=== PATIENT | male | born 1945 | race Caucasian/White ===

== ENCOUNTER 2020-11-07 15:39 | Outpatient (REF) | payer MEDICARE, SELFPAY ==
--- NOTE | 2020-11-07 | XR_ITS ---
EXAMINATION: RIGHT WRIST X-RAY CLINICAL INFORMATION: Pain COMPARISON: Previous forearm x-ray June 2018 TECHNIQUE: 4 views of the right wrist FINDINGS: Bone alignment is normal. No acute fracture or dislocation is seen. There is an old healed fracture of the right distal radius that appears unchanged. There are mild degenerative changes at the radiocarpal joint. Joint spaces are otherwise normal. Soft tissues are normal. XR/XR hand wrist RT IMPRESSION: Old healed fracture of the right distal radius and mild degenerative changes at the radiocarpal joint.
== END 2020-11-07 15:40 | disposition home or self-care (01) ==
LOC: HO.XRAY 15:39
PROVIDERS: PCP Internal Medicine; Visit Provider Nurse Practitioner Family
DX: M25.531 Pain in right wrist (principal)
CPT/HCPCS: 73110; 73130

== ENCOUNTER 2020-12-04 09:46 | Day surgery (SDC) | payer MEDICARE, MEDICAID, SELFPAY ==
[2020-11-28 20:56] VITALS: BMI 24.3
--- NOTE | 2020-12-03 08:39 | HO.ANESPROP2 ---
Documented by User: Tanja Valentin 12/03/20 08:39 HPI - Anesthesia Eval Consult details Narrative: 75yo M for Colonoscopy [facility] Past Medical History Medical History HTN (hypertension) Hypercholesteremia Surgical History Surgical History History of colonoscopy Social History Social History Smoking Status: Never smoker Use of substances other than those prescribed or required for medical reasons: No Advance Directives: No Advance Directives Information Provided: No Advance Directives on File: No Meds Allergies Allergy/AdvReac Type Severity Reaction Status Date / Time No Known Allergies Allergy Verified 11/28/20 20:56 [No Known Allergies*] Home Medications Medication Instructions Recorded Confirmed Type atorvastatin 1 tab PO DAILY 11/28/20 11/28/20 History hydrochlorothiazide 1 cap PO QAM 11/28/20 11/28/20 History meloxicam 1 tab PO DAILY 11/28/20 11/28/20 History terazosin 1 cap PO BEDTIME 11/28/20 11/28/20 History Exam Exam Date and Time: December 03, 2020 0839 Height,Weight and Vital Signs: Height 5 ft 8 in Weight 72.575 kg Assessment and Plan Assessment Anesthesia Assessment: Chart Reviewed Documented by User: Sourav Lorenzo 12/04/20 10:15 [facility] Past Medical History Medical History HTN (hypertension) Hypercholesteremia Surgical History Surgical History History of colonoscopy Social History Social History Smoking Status: Never smoker Use of substances other than those prescribed or required for medical reasons: No Advance Directives: No Advance Directives Information Provided: No Advance Directives on File: No Meds Allergies Allergy/AdvReac Type Severity Reaction Status Date / Time No Known Allergies Allergy Verified 11/28/20 20:56 [No Known Allergies*] Home Medications Medication Instructions Recorded Confirmed Type atorvastatin 1 tab PO DAILY 11/28/20 11/28/20 History hydrochlorothiazide 1 cap PO QAM 11/28/20 11/28/20 History meloxicam 1 tab PO DAILY 11/28/20 11/28/20 History terazosin 1 cap PO BEDTIME 11/28/20 11/28/20 History Exam Airway Mallampati Class: II TM Dist: >3cm Neck ROM: Full Loose/Missing/Broken Teeth: No Heart: rrr+[id number] Lungs: cta b/l Assessment and Plan Assessment Anesthesia Assessment: Anesthesia Plan Discussed, PAT Visit and Chart Reviewed Final Anesthetic Review NPO: Yes ASA Class: II Final Preanesthetic Review: No Changes in Pt Med Stat, Meds/Allgs Chart Reviewed, Consent Obtained/Reviewed and Anes Risks/Benef Reviewed Patient Risk: Low Procedure Risk: Low Assessment/Block/Sedation in SS: Assess/Block/Sedation-SS Anesthetic Plan Anesthetic Plan: MAC: Disposition: Standard PACU
[2020-12-04 10:00] VITALS: BP 128/67; PULSE 83; RESP 16; TEMP 36.2; O2SAT 99
[2020-12-04] MEDS: Lactated Ringers 1,000 ML 100 ML IVCONT (10:11)
--- NOTE | 2020-12-04 10:21 | MHC.SHP ---
Pre-Procedural Eval Section B Chief Complaint: colon polyps Relevant Family History (Specify if Yes): No Relevant Social History: None Present Medications: see Short Stay Collaborative assessment (HTN (hypertension) Hypercholesteremia) Medical History: Significant History (HTN (hypertension) Hypercholesteremia) History of Previous Operations: Relevant previous surgery/procedure and date(s) (colonoscopy) Allergies: Allergies Allergy/AdvReac Type Severity Reaction Status Date / Time No Known Allergies Allergy Verified 11/28/20 20:56 [No Known Allergies*] Review of Systems Sugical H&P ROS: Negative: Constitution, Cardiovascular, Respiratory, Neurological, Psychiatric, Hem-Onc, Allergic/Immunologic, Gastrointestinal, Genitourinary, Musculoskeletal, Integumentary, Endocrine and Eyes/Ears/Nose/Throat Exam Surgical H&P Exam: Normal: HEENT, Normal: Heart, Normal: Lungs, Normal: Extremities, Normal: Abdomen, Normal: Skin and Normal: Neurological Plan Diagnosis/Plan: Unchanged I have reviewed the history and physical and performed a pertinent physical examination on my patient. No changes have occurred unless specified.
--- NOTE | 2020-12-04 10:22 | PM.OP ---
Brief Operative Note Date of Service: 12/04/20 Pre-op diagnosis: hx of colon polyps Post-op diagnosis: same Procedure: Operative Information Procedure Description: Colonoscopy COLONOSCOPY Instrument: Olympus variable stiffness pediatric scope 190L Colonoscopy Monitoring: Vital signs and clinical assessment, continuous EKG monitoring, Pulse oximetry, Carbon Dioxide monitoring and blood pressure monitoring were done throughout the procedure. Colon withdrawal time was 8 minutes. Procedure: The patient was placed in the left lateral decubitis position and pre-procedure medications were administered. After a digital rectal examination of the ano-rectum, the video colonoscope was inserted into the rectum and advanced through the colon to the cecum/TI. The colonoscope was slowly withdrawn in a retrograde panoramic fashion and the colon mucosa was carefully examined including a retroflexed view of the rectum. Findings and interventions are described below. Procedure Difficulty:easy Findings: Terminal Ileum-normal Cecum:normal Ascending Colon: normal Transverse Colon -normal Descending Colon:normal Sigmoid Colon: moderate diverticulosis with mucosal hypertrophy and some narrowing of colon Rectum: Retroflexion with moderate sized internal hemorrhoids, grade II Anorectum - normal, internal hemorrhoids seen at anal verge Colon preparation: Ennis Bowel Preparation Scale Right colon; 3 Transverse colon: 3 Left colon; 3 (0 = Unprepared colon segment with mucosa not seen due to solid stool that cannot be cleared. 1 = Portion of mucosa of the colon segment seen, but other areas of the colon segment not well seen due to staining, residual stool and/or opaque liquid. 2 = Minor amount of residual staining, small fragments of stool and/or opaque liquid, but mucosa of colon segment seen well. 3 = Entire mucosa of colon segment seen well with no residual staining, small fragments of stool or opaque liquid) Impression and Post Procedure Diagnosis: diverticulosis internal hemorrhoids Plan: High fiber diet leaflet Avoid straining at stool, epsom salts and sitz bath prn, anusol supps or cream prn Repeat Colonoscopy 10 years or earlier if clinically indicated Above findings were reviewed with the patient and relevant handouts were provided if indicated. Surgeon: Alicia Harvey MD Anesthesia: MAC Estimated blood loss (mL): 0 Condition: stable Disposition: PACU
[2020-12-04 10:40] VITALS: BP 91/49; PULSE 70; RESP 16; TEMP 36.6; O2SAT 97
[2020-12-04 10:55] VITALS: BP 105/59; PULSE 76; RESP 16; TEMP 36.6; O2SAT 98
--- NOTE | 2020-12-04 11:23 | HO.POSTANES ---
Post Anesthesia Evaluation Post Anesthesia Evaluation Vital Signs: Vital Signs Temp Pulse Resp BP Pulse Ox 12/04/20 10:55 97.8 F 76 16 105/59 L 98 12/04/20 10:40 97.8 F 70 16 91/49 L 97 12/04/20 10:00 97.1 F 83 16 128/67 99 Anesthesia: Monitored Mental Status: Awake Pain Control: Satisfactory Nausea/Vomiting: None Hydration: Adequate Anesthesia-Related Issues: No Anes. Related Issues
--- NOTE | 2020-12-04 11:38 | PC.NURSE ---
Discharge instructions given with the assistance of [facility] Senior Internal Auditor
== END 2020-12-04 11:35 | disposition home or self-care (01) ==
PROVIDERS: PCP Internal Medicine; Visit Provider Internal Medicine Gastroenterology
PROC: 0DJD8ZZ Inspection of Lower Intestinal Tract, Via Natural or Artificial Opening Endoscopic (ICD-10-PCS; CPT 45378; principal; 2020-12-04 10:20)
DX: Z12.11 Encounter for screening for malignant neoplasm of colon (principal); Z86.010 Personal history of colon polyps; K57.30 Diverticulosis of large intestine without perforation or abscess without bleeding; K63.89 Other specified diseases of intestine; K64.1 Second degree hemorrhoids; I10 Essential (primary) hypertension; Z79.899 Other long term (current) drug therapy
CPT/HCPCS: G0105

== ENCOUNTER → 2020-12-18 11:15 | Outpatient (BNVA) | payer MEDICARE, MEDICAID, SELFPAY | PROVIDERS: PCP Internal Medicine; Visit Provider Physician Assistant | DX: K64.8 Other hemorrhoids (principal); K57.90 Diverticulosis of intestine, part unspecified, without perforation or abscess without bleeding | CPT/HCPCS: Q3014 ==

== ENCOUNTER 2020-12-19 13:00 | Outpatient (RCR) | payer MEDICARE, MEDICAID, SELFPAY | END 2020-12-31 15:26 | disposition other institution (70) | LOC: HO.OT 13:00 | PROVIDERS: PCP Internal Medicine; Visit Provider Nurse Practitioner Family | DX: M77.8 Other enthesopathies, not elsewhere classified (principal); M25.531 Pain in right wrist | CPT/HCPCS: 97033; 97035; 97110; 97140; 97166 ==

== ENCOUNTER 2024-07-27 12:53 | Outpatient (REF) | payer OTHER, MEDICAID, SELFPAY ==
--- NOTE | ~2024-07-27 | US_ITS ---
EXAMINATION: US SOFT TISSUE HEAD/NECK CLINICAL INFORMATION: Superficial round mass behind left ear x2 years. Remote history of smoking . COMPARISON: None available. TECHNIQUE: Linear transducer romo-scale and color Doppler examination with attention to the palpable region of concern behind the left ear. FINDINGS: Along the left retroauricular region is a avascular solid appearing focus measuring 0.9 x 0.4 x 1.1 cm with isoechoic echotexture to the subcutaneous fat potentially representing a lipoma though nonspecific. US/US soft tiss head and/or neck IMPRESSION: Along the left retroauricular region is a avascular solid appearing focus measuring 0.9 x 0.4 x 1.1 cm with isoechoic echotexture to the subcutaneous fat potentially representing a lipoma though nonspecific. Electronically signed by: Queenie Monsivais MD 08/06/2024 03:08 PM EDT
== END 2024-07-27 12:54 | disposition home or self-care (01) ==
LOC: HO.US 12:53
PROVIDERS: Visit Provider Nurse Practitioner Primary Care
DX: R22.9 Localized swelling, mass and lump, unspecified (principal)
CPT/HCPCS: 76536

== ENCOUNTER 2025-01-26 08:10 | Outpatient (REF) | payer OTHER, SELFPAY ==
--- OUTSIDE RECORDS SUMMARY | 2025-01-26 08:29 | XMS_ITS | Encounter Summary ---
Author Organization [employer] Address [address] [place] [address] Care Team Providers Care User Experience Analyst Name Role Phone Emeli Gaitan TAWANNA Primary Care Provider [phone] Encounter Details Date Type Department Care Team (Latest Contact Info) Description 01/25/2025 Travel Social History Tobacco Use Types Packs/Day Years Used Date Smoking Tobacco: Never Smokeless Tobacco: Never Depression Answer Date Recorded Patient Health Questionnaire-9 Score 2 07/19/2024 Patient Health Questionnaire-9 Score 2 07/19/2024 Last PHQ-9: Questionnaire Data Not on file 0 07/19/2024 Housing Stability Answer Date Recorded What is your housing situation today? I have carolyn de la rosa 07/19/[address] you li ve. Do you have problems with any of the following? None of the above 07/19/2024 Food Insecurity Answer Date Recorded Within the past 12 months, y ou worried that your food would run out before you got money to buy more: Never True 07/19/2024 Within the past 12 months,th e food you bought just didn't last and you didn't have enough money to get more: Never True Transportation Answer Date Recorded In the past 12 months, has l ack of transportation kept you from medical appts, meetings, work or from getting things needed for daily living? No 07/19/2024 Utilities Answer Date Recorded In the past 12 months, has t he electric, gas, oil or water company threatened to shut off services in your home? No 07/19/2024 Depression Answer Date Recorded Patient Health Questionnaire-2 Score 0 07/19/2024 Internet Access Answer Date Recorded Internet Access Q1 Yes 07/25/2024 Internet Access Q2 Not on file 07/25/2024 Sex and Gender Information Value Date Recorded Sex Assigned at Male 09/22/2022 10:16 AM EDT Legal Sex Male 10:16 AM EDT Gender Identity Male 09/22/2022 10:16 AM EDT Sexual Orientation Straight 09/22/2022 10 :16 AM EDT documented as of this encounter Plan of Treatment Upcoming Encounters Date Type Department Care Team (Late st Contact Info) Description 01/27/2025 3:00 PM EST Nurse Only [facility] MED[facility]INE [address] [place] [address] 03/16/2025 11:00 AM EDT Office Visit [facility] ADULT DENTAL [address] [place] [address] Kenia Pierce [address] [place] [address] documented as of this encounter Visit Diagnoses Not on filedocumented in this encounter Additional Health Concerns Assessment Noted Time PHQ-9 Depression Total Score: 2 07/19/20 24 1:41 PM EDT documented as of this encounter Care Teams User Experience Analyst Relationship Specialty Start Date End Date Emeli Gaitan ANP [address] [place] [address] PCP - General Family Medicine 02/18/23 documented as of this encounter
--- OUTSIDE RECORDS SUMMARY | 2025-01-26 08:29 | XMS_ITS | Encounter Summary ---
Author Organization [employer] Address [address] [place] [address] Care Team Providers Care Transmission Supervisor Name Role Phone Emeli Gaitan Primary Care Provider [phone] Reason for Visit * Reason Comments Pre-visit Planning SDOH Screening negat alex and Tobacco screening negative Encounter Details Date Type Department Care Team ([facility] st Contact Info) Description 01/17/2025 Patient Outreach [facility] MEDICINE [address] [place], [place] [phone] Emeli Gaitan ANP [address] [place] [address] Pre-visit Planning (SDOH Screening negative and Tobacco screening negative) Social History Tobacco Use Types Packs/Day Years [...] AM EDT documented as of this encounter Progress Notes * Dana Astorga - 01/17/2025 11:19 AM EST NEO Burt placed successful outbound call to patient for pre-visit planning. Patient name and confirmed. Patient confirms appt date and time, and has transportation arrangements. Biggest concern for appointment at this time is no concerns. Patient advised to bring to appointment a photo id and insurance card. Appropriate screenings completed in anticipation of appointment. documented in this encounter Plan of Treatment Upcoming Encounters Date Type Department Care Team (Late st Contact Info) Description 01/27/2025 3:00 PM EST Nurse Only [facility] [address] [place] [address] 03/16/2025 11:00 AM EDT Office Visit [facility] ADULT DENTAL [address] [place] [address] Kenia Pierce [address] [place] [address] documented as of this encounter Visit Diagnoses Not on filedocumented in this encounter Additional Health Concerns Assessment Noted Time PHQ-9 Depression Total Score: 2 07/19/20 24 1:41 PM EDT documented as of this encounter Care Teams Transmission Supervisor Relationship Specialty Start Date End Date Emeli Gaitan ANP [address] [place] [address] PCP - General Family Medicine 02/18/23 documented as of this encounter
--- OUTSIDE RECORDS SUMMARY | 2025-01-26 08:29 | XMS_ITS | Clinical Summary ---
Author Organization [employer] Address [address] [place] [address] Care Team Providers Care Power Engineer Name Role Phone Emeli Gaitan TAWANNA Primary Care Provider [phone] Allergies No known active allergies Medications hydroCHLOROthia zide (Microzide) 12.5 MG capsule TAKE 1 CAPSULE BY MOUTH ONCE DAILY 90 capsule 3 02/29/20 24 Active zolpidem (Ambien) 5 MG tabletIndicatio ns:Insomnia, unspecified type TAKE 1 TABLET BY MOUTH AT BEDTIME 30 tablet 1 12/09/19 25 Active atorvastatin (Lipitor) 10 MG tablet Take 1 tablet (10 mg) by mouth Once per day. 90 tablet 3 12/30/19 25 Active terazosin (Hytrin) 10 MG capsule TAKE 1 CAPSULE BY MOUTH EVERY DAY AT BEDTIME 90 capsule 3 01/17/20 25 Active atorvastatin (Lipitor) 10 MG tablet TAKE 1 TABLET BY MOUTH EVERY DAY 90 tablet 3 02/29/20 24 025 Discontinued(Re order (will not trigger notification to Pharmacy)) terazosin (Hytrin) 10 MG capsule TAKE 1 CAPSULE BY MOUTH AT BEDTIME 90 capsule 3 02/29/20 24 025 Discontinued Active Problems Problem Noted Date Diagnosed Date Periodontal disease 07/13/2023 Dental calculus 07/13/2023 Generalized gingival recession 07/13/2023 Healthcare maintenance 02/18/2023 Overview (02/18/2023): colonoscopy: last in 2019 was normal, repeat in 10 years AAA screening: former smoker, last US in 2013 showed no AAA Vaccinations: UTD, TDap 01/2022 Pain in elbow 09/13/2018 Insomnia 10/21/2012 Hypercholesterolemia 08/18/2012 Hypertension 08/18/2012 Benign prostatic hyperplasia with urinary obstru ction 05/25/2012 Encounters Date Type Department Care Team Description 01/25/2025 3:00 PM EST Office Visit [facility] MEDICINE [address] [place] [phone] Emeli Gaitan ANP Hypercholesterolemia (Primary Dx); Primary hypertension; Insomnia, unspecified type; Encounter for immunization 01/25/2025 Travel 01/17/2025 Patient Outreach [facility] [address] [place] [address] Emeli Gaitan ANP Pre-visit Planning (SDOH Screening negative and Tobacco screening negative) 01/16/2025 Refill [facility] MED[facility]INE [address] [place] [address] Emeli Gaitan ANP 12/30/2024 Refill [facility] [address] [place] [id number] Emeli Gaitan ANP 12/09/2024 Refill [facility] [address] [place] [address] Eemli Gaitan ANP Insomnia, unspecified type 2024 Telephone [facility] MED[facility]INE [address] [place] [address] Gustabo Loaiza [place] January recall from Last 3 Months Immunizations Name Administration Dates Next Due Hep A, Adult 03/11/2013,10/20/2011 Hep B, adult 03/11/2013,10/20/2011 Influenza High-dose Quadriva lent Preservative Free 08/24/2022,07/22/2021,09/14/2020 Influenza injectable quadriv alent IIV4 with preservative 08/11/2016 Influenza, High Dose Seasona l, Preservative Free 01/25/2025,08/24/2018,08/10/2017 Influenza, IIV3, injectable 08/05/2011 Influenza, Split (incl. nicolasa fied surface antigen) 08/15/2013,08/18/2012 Influenza, seasonal, injecta ble, preservative free 08/13/2015 Pfizer Covid-19 Vaccine 12+ 01/25/2025 Pneumococcal Conjugate PCV 13 08/13/2015 Pneumococcal Polysaccharide PPSV23 05/20/2013 Tdap 02/17/2022,10/20/2011 Zoster, Recombinant 08/24/2020,06/22/2020 Zoster, live 03/11/2013 Social History Tobacco Use Types Packs/Day Years Used Date Smoking Tobacco: Never Smokeless Tobacco: Never Tobacco Cessation:Counseling Given: Not Answered Depression Answer Date Recorded Patient Health Questionnaire-9 [...] Orientation Straight 09/22/2022 10 :16 AM EDT Last Filed Vital Signs Vital Sign Reading Time Taken Comments Blood Pressure 129/67 01/25/2025 2:47 PM EST Pulse 74 01/25/2025 2:47 PM EST Temperature 36.2 ??C (97.2 ??F) 01/25/2025 2:47 PM ES T Respiratory Rate 15 01/25/2025 2:47 PM EST Oxygen Saturation 98% 01/25/2025 2:47 PM EST Inhaled Oxygen Concentration - - Weight 68.8 kg (151 lb 9.6 oz) 01/25/2025 2:47 P M EST Height 170.2 cm (5' 7 ) 07/19/2024 1:33 PM EDT Body Mass Index 23.74 07/19/2024 1:33 PM EDT Plan of Treatment Upcoming Encounters Date Type Department Care Team (Late st Contact Info) Description 01/27/2025 3:00 PM EST Nurse Only [facility] [address] [place] [address] 03/16/2025 11:00 AM EDT Office Visit [facility] ADULT DENTAL [address] [place] [address] Stan Kenia [address] [place] [address] Health Maintenance Due Date Last Done Comments Hepatitis C Screening 1963 Hepatitis B Vaccines (3 of 3 - 19+ 3-dose series) 05/06/2013 03/11/2013, 10/20/2011 RSV Patients and Patients Aged 60 years or older (1 - 1-dose 75+ series) 2022 Dental Oral Exam 01/14/2024 07/13/2023, 07/2021, 02/12/2017, Additional history exists Dental X-Ray: Full Mouth 03/02/2024 021, 08/24/2013, 01/16/2010 Dental X-Ray: Bitewings 07/14/2024 07/13/20 23, 03/01/2021, 02/12/2017, Additional history exists Dental Prophylaxis 03/14/2025 09/12/2024, 0 07/13/2023, 03/01/2021, Additional history exists Depression Screening 07/19/2025 07/19/2024, 07/19/20 24 SDOH Screening 01/17/2026 01/17/2025 Alcohol/Substance Use Screening 01/25/2026 01/25/2025 Tobacco Screening 01/25/2026 01/25/2025 Lipid Panel 02/19/2028 02/18/2023, 01/22, 06/07/2020 DTaP/Tdap/Td Vaccines (3 - Td or Tdap) 02/18/2032 02/17/2022, 10/20/2011 Hepatitis A Vaccines Aged Out 03/11/2013, 10/20/20 11 No longer eligible based on patient's age to complete this topic Pneumococcal Vaccine: 50+ Years Completed 08/13/2015, 05/20/2013 Zoster Vaccines Completed 08/24/2020, 05/25, 03/11/2013 Colonoscopy Discontinued 12/18/2020 Colorectal Cancer Screening Discontinued COVID-19 Vaccine Completed 01/25/2025, , 09/25/2021 Influenza Vaccine Completed 01/25/2025, , 07/22/2021, Additional history exists CT Colonography Discontinued FIT DNA/Cologuard Discontinued FIT Discontinued FOBT Discontinued HIB Vaccines Aged Out No longer eligi ble based on patient's age to complete this topic HPV Vaccines Aged Out No longer eligi ble based on patient's age to complete this topic IPV Vaccines Aged Out No longer eligi ble based on patient's age to complete this topic Meningococcal Vaccine Aged Out No maritza antonio eligible based on patient's age to complete this topic RSV under 20 months Aged Out No longe r eligible based on patient's age to complete this topic Rotavirus Vaccines Aged Out No longer eligible based on patient's age to complete this topic Sigmoidoscopy Discontinued Procedures Procedure Name Priority Date/Time Associated Diagnosis Comments Full PROPHYLAXIS - ADULT Routine 09/12/2024 11:00 AM EDT Dental calculus Generalized gingival recession BITEWINGS - 4 RADIOGRAPHIC IMAGES Routine 07/13/2023 1:00 PM EDT Periodontal disease Dental calculus Generalized gingival recession PERIODIC ORAL EVALUATION - ESTABLISHED PATIENT Routine 07/13/2023 1:00 PM EDT LIPID PANEL, STANDARD Routine 02/18/2023 2:48 PM EDT Hypercholesterolemi a INTRAORAL - COMPLETE SERIES OF RADIOGRAPHIC IMAGES Routine 03/01/2021 12:00 AM EDT HM COLONOSCOPY Routine 12/18/2020 2:34 PM EST from Last 3 Months or Most Recently Relevant to Health Maintenance Results * Lipid Panel, Standard (02/18/2023 2:48 PM EDT) [facility] Signature Cholesterol, Total 150 <200 mg/dL [facility] HDL Cholesterol 49 > OR = 40 mg/dL [facility] Triglycerides 124 <150 mg/dL [facility] LDL Cholesterol 78 mg/dL (calc) [facility] Comment: Reference range: <100 Desirable range <100 mg/dL for primary prevention; ?? <70 mg/dL for patients with CHD or diabetic patients with > or = 2 CHD risk factors. LDL-C is now calculated using the Wesley calculation, which is a validated novel method providing better accuracy than the Friedewald equation in the estimation of LDL-C. Varun SS et al. CHRIS. 2013;310(19): 9351-5545 (http://education.[place]/faq/GKK310) Chol/HDLC Ratio 3.1 <5.0 (calc) [facility] Non-HDL Cholesterol 101 <130 mg/dL (calc) [facility] Comment: For patients with diabetes plus 1 major ASCVD risk factor, treating to a non-HDL-C goal of <100 mg/dL (LDL-C of <70 mg/dL) is considered a therapeutic option. Blood Venous blood specimen / Unknown 02/18/2023 2:48 PM EDT 02/18/2023 2:49 PM EDT [facility] LAB BLOOD ORDERABLES Final Resul t [facility] [address], [place] [address] [facility] [address] [place] [address] * Hm Colonoscopy (12/18/2020 2:34 PM EST) Historical Provider MD HEALTH MAINTENANCE Final Result from Last 3 Months or Most Recently Relevant to Health Maintenance Insurance DENTAL - [facility] [address] [place] [id number] Care Teams Power Engineer Relationship Specialty Start Date End Date Emeli Gaitan ANP [address] [place] [id number] PCP - General Family Medicine 02/18/23
--- OUTSIDE RECORDS SUMMARY | 2025-01-26 08:29 | XMS_ITS | Encounter Summary ---
Author Organization [employer] Address [address] [place] [address] Care Team Providers Care Strapper Name Role Phone Emeli Gaitan Primary Care Provider [phone] Encounter Details Date Type Department Care Team (Late st Contact Info) Description 02/09/2024 Orders Only [facility] MEDICINE [address] [place], [place] [phone] ProviderAracely MD Social History Tobacco Use Types Packs/Day Years Used Date Smoking Tobacco: Never Smokeless Tobacco: Never Depression Answer Date Recorded Patient Health Questionnaire-9 Score 0 02/18/2023 Housing Stability Answer Date Recorded What is your housing situation today? I have carolyn sing 09/09/[address] you li ve. Do you have problems with any of the following? None of the above 09/09/2023 Food Insecurity Answer Date Recorded Within the past 12 months, y ou worried that your food would run out before you got money to buy more: Never True 09/09/2023 Within the past 12 months,th e food you bought just didn't last and you didn't have enough money to get more: Never True Transportation Answer Date Recorded In the past 12 months, has l ack of transportation kept you from medical appts, meetings, work or from getting things needed for daily living? No 09/09/2023 Utilities Answer Date Recorded In the past 12 months, has t he electric, gas, oil or water company threatened to shut off services in your home? No 09/09/2023 Depression Answer Date Recorded Patient Health Questionnaire-2 Score 0 02/18/2023 Sex and Gender Information Value Date Recorded Sex Assigned at Male 09/22/2022 10:16 AM EDT Legal Sex Male 10:16 AM EDT Gender Identity Male 09/22/2022 10:16 AM EDT Sexual Orientation Straight 09/22/2022 10 :16 AM EDT documented as of this encounter Plan of Treatment Upcoming Encounters Date Type Department Care Team (Late st Contact Info) Description 01/27/2025 3:00 PM EST Nurse Only [facility] MEDICINE [address] [place] [address] 03/16/2025 11:00 AM EDT Office Visit [facility] ADULT DENTAL [address] [place] [address] Stan, Kenia [address] [place] [address] documented as of this encounter Procedures Procedure Name Priority Date/Time Associated Diagnosis Comments HM COLONOSCOPY Routine 12/18/2020 2:34 PM EST documented in this encounter Results * Hm Colonoscopy (12/18/2020 2:34 PM EST) Historical Provider HEALTH MAINTENANCE Final Result documented in this encounter Visit Diagnoses Not on filedocumented in this encounter Additional Health Concerns Assessment Noted Time PHQ-9 Depression Total Score: 0 02/19/20 23 2:19 PM EDT documented as of this encounter Care Teams Strapper Relationship Specialty Start Date End Date Emeli Gaitan ANP [address] [place] [address] PCP - General Family Medicine 02/18/23 documented as of this encounter
--- OUTSIDE RECORDS SUMMARY | 2025-01-26 08:29 | XMS_ITS | Encounter Summary ---
Author Organization [employer] Address [address] [place] [address] Care Team Providers Care Java Websphere Developer Name Role Phone Emeli Gaitan Primary Care Provider [phone] Reason for Visit * Reason Comments Med Refill Encounter Details Date Type Department Care Team ([facility] st Contact Info) Description 01/16/2025 Refill [facility] MEDICINE [address] [place] [address] Emeli Gaitan ANP [address] [place] [address] Social History Tobacco Use Types Packs/Day Years [...] Description 01/27/2025 3:00 PM EST Nurse Only [facility] MEDICINE [address] [place] [address] 03/16/2025 11:00 AM EDT Office Visit [facility] ADULT DENTAL [address] [place] [address] Stan, Kenia [address] [place] [address] documented as of this encounter Visit Diagnoses Not on filedocumented in this encounter Additional Health Concerns Assessment Noted Time PHQ-9 Depression Total Score: 2 07/19/20 24 1:41 PM EDT documented as of this encounter Care Teams Java Websphere Developer Relationship Specialty Start Date End Date Emeli Gaitan ANP [address] [place] [address] PCP - General Family Medicine 02/18/23 documented as of this encounter
--- OUTSIDE RECORDS SUMMARY | 2025-01-26 08:30 | XMS_ITS | Encounter Summary ---
Author Organization [employer] Address [address] [place] [address] Care Team Providers Care Quality Systems Manager Name Role Phone Emeli Gaitan Primary Care Provider [phone] Reason for Visit * Reason Comments Med Refill Encounter Details Date Type Department Care Team ([facility] st Contact Info) Description 09/03/2023 Refill [facility] MEDICINE [address] [place] [address] Emeli Gaitan ANP [address] [place] [address] Social History Tobacco Use Types Packs/Day Years Used Date Smoking Tobacco: Never Smokeless Tobacco: Never Depression Answer Date Recorded Patient Health Questionnaire-9 Score 0 02/18/2023 Housing Stability Answer Date Recorded What is your housing situation today? I have carolynyaima de la rosa 09/03/[address] you li ve. Do you have problems with any of the following? None of the above 09/03/2023 Food Insecurity Answer Date Recorded Within the past 12 months, y ou worried that your food would run out before you got money to buy more: Never True 09/03/2023 Within the past 12 months,th e food you bought just didn't last and you didn't have enough money to get more: Never True 10/2023 Transportation Answer Date Recorded In the past 12 months, has l ack of transportation kept you from medical appts, meetings, work or from getting things needed for daily living? No 09/03/2023 Utilities Answer Date Recorded In the past 12 months, has t he electric, gas, oil or water company threatened to shut off services in your home? No 09/03/2023 Depression Answer Date Recorded Patient Health Questionnaire-2 [...] Description 01/27/2025 3:00 PM EST Nurse Only [facility] MEDICINE [address] [place] [address] 03/16/2025 11:00 AM EDT Office Visit [facility] ADULT DENTAL [address] [place] [address] Kenia Pierce [address] [place] [address] documented as of this encounter Visit Diagnoses Not on filedocumented in this encounter Additional Health Concerns Assessment Noted Time PHQ-9 Depression Total Score: 0 02/19/20 23 2:19 PM EDT documented as of this encounter Care Teams Quality Systems Manager Relationship Specialty Start Date End Date Emeli Gaitan ANP [address] [place] [address] PCP - General Family Medicine 02/18/23 documented as of this encounter
--- OUTSIDE RECORDS SUMMARY | 2025-01-26 08:30 | XMS_ITS | Encounter Summary ---
Author Organization [employer] Address [address] [place] [address] Care Team Providers Care Director Cardiac Name Role Phone Emeli Gaitan Primary Care Provider [phone] Encounter Details Date Type Department Care Team (Latest Contact Info) Description 01/25/2025 3:00 PM EST Office Visit [facility] MEDICINE [address] [place] [address] Emeli Gaitan ANP [address] [place] [address] Hypercholesterolemia (Primary Dx); Primary hypertension; Insomnia, unspecified type; Encounter for immunization Social History Tobacco Use Types Packs/Day Years [...] AM EDT documented as of this encounter Last Filed Vital Signs Vital Sign Reading [...] oz) 01/25/2025 2:47 P M EST Height - - Body Mass Index 23.74 07/19/2024 1:33 PM EDT documented in this encounter Progress Notes * TAWANNA Tellez - 01/25/2025 3:00 PM EST SUBJECTIVE: Lester Messer is a 79 y.o. year old male who presents for chronic disease management. Denies recent illness, injury, or hospitalization. PMH HLD, HTN, insomnia, BPH Acute Concerns: None Happy to get all vaccines due. Accepts flu and COVID today and will get RSV and PCV 20 at the pharmacy. Sleeping well feels good overall. Will get routine labs when he has a chance. colonoscopy: last in 2019 was normal, repeat in 10 years AAA screening: former smoker, quit at 27yo, last US in 2013 showed no AAA Vaccinations: UTD, TDap 01/2022 CEE 08/30/24 no retinopathy, +cataracts Non-smoker Lives w/ . Due for PCV20, RSV, flu, COVID booster Lithuanian interpretation by Meaghan JONES. Social History Social History Narrative Not on file Patient Active Problem List Diagnosis Benign prostatic hyperplasia with urinary obstruction Hypercholesterolemia Hypertension Insomnia Pain in elbow Healthcare maintenance Periodontal disease Dental calculus Generalized gingival recession History reviewed. No pertinent surgical history. No family history on file. Review of Systems Constitutional: Negative for chills and fever. HENT: Negative for sore throat. Respiratory: Negative for cough and shortness of breath. Cardiovascular: Negative for chest pain. Gastrointestinal: Negative for constipation and diarrhea. Endocrine: Negative for polydipsia, polyphagia and polyuria. Genitourinary: Negative for dysuria. Musculoskeletal: Negative for back pain. Neurological: Negative for weakness. Psychiatric/Behavioral: Negative for sleep disturbance. OBJECTIVE: Vitals: 01/25/25 1447 BP: 129/67 Pulse: 74 Resp: 15 Temp: 97.2 ??F (36.2 ??C) TempSrc: Temporal SpO2: 98% Weight: 151 lb 9.6 oz (68.8 kg) Physical Exam Constitutional: General: He is not in acute distress. Appearance: Normal appearance. He is not ill-appearing. HENT: Head: Normocephalic and atraumatic. Eyes: General: No scleral icterus. Extraocular Movements: Extraocular movements intact. Pupils: Pupils are equal, round, and reactive to light. Cardiovascular: Rate and Rhythm: Normal rate and regular rhythm. Heart sounds: No murmur heard. Pulmonary: Effort: Pulmonary effort is normal. No accessory muscle usage or respiratory distress. Neurological: General: No focal deficit present. Mental Status: He is alert and oriented to person, place, and time. Gait: Gait normal. Psychiatric: Mood and Affect: Mood normal. Behavior: Behavior normal. ASSESSMENT/PLAN Diagnoses and all orders for this visit: Hypercholesterolemia (Primary) We will continue atorvastatin 10 mg at bedtime. He will get fasting lipid panel as previously ordered. Continue to recommend regular exercise and high-fiber diet. Primary hypertension At/near goal today, </= 130/80. Continue to encourage low salt diet, regular exercise, home BP monitoring, compliance with medications. Call clinic if BP is frequently >150/90 Go to ED/call 911 if > 170/100 and having sx such as FRAGOSO, visual changes, chest pain, SOB Last renal function: Lab Results Component Value Date GLUCOSE 93 02/18/2023 NA 138 02/18/2023 K 3.9 02/18/2023 CO2 32 02/18/2023 CL 101 02/18/2023 BUN 21 02/18/2023 CREATININE 1.23 02/18/2023 EGFR 61 02/18/2023 No results found for: MICROALBCREA No results found for: MICROALBCREU Lab update pending Insomnia, unspecified type Continue ambien 5mg as needed He will go to pharmacy to get RSV and PCV20 at his convenience. Orders Placed This Encounter Procedures FLU VACCINE TRIVALENT HIGH DOSE 65 yrs + COVID-19 VACCINE (SiTune) [id number] 12 yrs + Follow Up: 6 mos, sooner prn Current Outpatient Medications on File Prior to Visit Medication Sig Dispense Refill atorvastatin (Lipitor) 10 MG tablet Take 1 tablet (10 mg) by mouth Once per day. 90 tablet 3 hydroCHLOROthiazide (Microzide) 12.5 MG capsule TAKE 1 CAPSULE BY MOUTH ONCE DAILY 90 capsule 3 terazosin (Hytrin) 10 MG capsule TAKE 1 CAPSULE BY MOUTH EVERY DAY AT BEDTIME 90 capsule 3 zolpidem (Ambien) 5 MG tablet TAKE 1 TABLET BY MOUTH AT BEDTIME 30 tablet 1 No current facility-administered medications on file prior to visit. documented in this encounter Plan of Treatment Upcoming Encounters Date Type Department Care Team (Late st Contact Info) Description 01/27/2025 3:00 PM EST Nurse Only [facility] MEDICINE [address] [place] [address] 03/16/2025 11:00 AM EDT Office Visit [facility] ADULT DENTAL [address] [place] [address] StanKenia [address] [place] [address] documented as of this encounter Visit Diagnoses Diagnosis Hypercholesterolemia- Primary Pure hypercholesterolemia Primary hypertension Unspecified essential hypertension Insomnia, unspecified type Encounter for immunization documented in this encounter Additional Health Concerns Assessment Noted Time PHQ-9 Depression Total Score: 2 07/19/20 24 1:41 PM EDT documented as of this encounter Care Teams Director Cardiac Relationship Specialty Start Date End Date Emeli Gaitan ANP [address] [place] [address] PCP - General Family Medicine 02/18/23 documented as of this encounter
--- OUTSIDE RECORDS SUMMARY | 2025-01-26 08:30 | XMS_ITS | Encounter Summary ---
Author Organization [employer] Address [address] [place] [address] Care Team Providers Care Field Return Repairer Name Role Phone Emeli Gaitan Primary Care Provider [phone] Reason for Visit * Reason Comments Med Refill Encounter Details Date Type Department Care Team ([facility] st Contact Info) Description 09/09/2023 Refill [facility] MEDICINE [address] [place] [address] Emeli Gaitan ANP [address] [place] [address] Social History Tobacco Use Types Packs/Day Years Used Date Smoking Tobacco: Never Smokeless Tobacco: Never Depression Answer Date Recorded Patient Health Questionnaire-9 Score 0 02/18/2023 Housing Stability Answer Date Recorded What is your housing situation today? I have carolynyaima de la rosa 09/09/[address] you li [...] Only [facility] MEDICINE [address] [place] [address] 03/16/2025 11:00 AM EDT Office Visit [facility] ADULT DENTAL [address] [place] [address] Kenia Pierce [address] [place] [address] documented as of this encounter Visit Diagnoses Not on filedocumented in this encounter Additional Health Concerns Assessment Noted Time PHQ-9 Depression Total Score: 0 02/19/20 23 2:19 PM EDT documented as of this encounter Care Teams Field Return Repairer Relationship Specialty Start Date End Date Emeli Gaitan ANP [address] [place] [address] PCP - General Family Medicine 02/18/23 documented as of this encounter
--- OUTSIDE RECORDS SUMMARY | 2025-01-26 08:30 | XMS_ITS | Encounter Summary ---
Author Organization [employer] [facility] Address [address] [place] [address] Care Team Providers Care Broadcast Systems Engineer Name Role Phone Armand Nelson MD Primary Care Provider Emeli Kaplan Primary Care Provider [phone] Encounter Details Date Type Department Care Team (Latest Contact Info) Description 03/01/2021 Abstract [facility] CONVERSIONS Dental, Provider, DDS Social History Tobacco Use Types Packs/Day Years Used Date Smoking Tobacco: Never Assessed Sex and Gender Information Value Date Recorded Sex Assigned at Male 09/22/2022 10:16 AM EDT Legal Sex Male 10:16 AM EDT Gender Identity Male 09/22/2022 10:16 AM EDT Sexual Orientation Straight 09/22/2022 10 :16 AM EDT documented as of this encounter Plan of Treatment Upcoming Encounters Date Type Department Care Team ( st Contact Info) Description 01/27/2025 3:00 PM EST Nurse Only [facility] MEDICINE [address] [place] [address] 03/16/2025 11:00 AM EDT Office Visit [facility] ADULT DENTAL [address] [place] [address] Stan, Kenia [address] [place] [address] documented as of this encounter Visit Diagnoses Not on filedocumented in this encounter Care Teams Broadcast Systems Engineer Relationship Specialty Start Date End Date Armand Nelson MD PCP - General Family Medicine 08/20/21 02/17/23 Emeli Gaitan ANP [address] [place] [address] PCP - General Family Medicine 02/18/23 documented as of this encounter
--- OUTSIDE RECORDS SUMMARY | 2025-01-26 08:30 | XMS_ITS | Encounter Summary ---
Author Organization [facility] Address [address] [place] [address] Care Team Providers Care Media Analyst Name Role Phone Emeli Gaitan Primary Care Provider [phone] Encounter Details Date Type Department Care Team (Late st Contact Info) Description 08/04/2023 Abstract [facility] ADULT DENTAL [address] [place] [address] Kenia Pierce [address] [place], [place] [phone] Social History Tobacco Use Types Packs/Day Years Used Date Smoking Tobacco: Never Smokeless Tobacco: Never Depression Answer Date Recorded Patient Health Questionnaire-9 Score 0 02/18/2023 Depression Answer Date Recorded Patient Health Questionnaire-2 [...] Description 01/27/2025 3:00 PM EST Nurse Only [facility] MEDICINE [address] [place], [place] [phone] 03/16/2025 11:00 AM EDT Office Visit [facility] ADULT DENTAL [address] [place], [place] [phone] Kenia Pierce [address] [place], [place] [phone] documented as of this encounter Visit Diagnoses Not on filedocumented in this encounter Additional Health Concerns Assessment Noted Time PHQ-9 Depression Total Score: 0 02/19/20 23 2:19 PM EDT documented as of this encounter Care Teams Media Analyst Relationship Specialty Start Date End Date Emeli Gaitan ANP [address] [place] [address] PCP - General Family Medicine 02/18/23 documented as of this encounter
--- OUTSIDE RECORDS SUMMARY | 2025-01-26 08:30 | XMS_ITS | Encounter Summary ---
Author Organization [employer] Address [address] [place] [address] Care Team Providers Care Board Machine Set Up Operator Name Role Phone Emeli Gaitan Primary Care Provider [phone] Reason for Visit * Reason Onset Date Comments Med Refill 12/30/2024 Encounter Details Date Type Department Care Team ([facility] st Contact Info) Description 12/30/2024 Refill [facility] MEDICINE [address] [place], [place] [phone] Emeli Gaitan ANP [address] [place] [address] Social History Tobacco Use Types Packs/Day Years [...] AM EDT documented as of this encounter Miscellaneous Notes * Addendum Note - Beverley Campuzano RN - 12/30/2024 12:21 PM ESTAddended by: BEVERLEY CAMPUZANO on: 12/30/2024 12:21 PM Modules accepted: Orders * Telephone Encounter - Beverley Campuzano RN - 12/30/2024 12:20 PM EST Telephone call returned to patient in regards to below message. Patient stating only need refill for one medication. Refill request pended and sent to PCP. Patient verbalized understanding and deniedhaving any further questions or concerns at this time. Patient to follow up as needed. * Telephone Encounter - Yaritza Goddard - 12/30/2024 9:59 AM EST Pt walked in requesting refill on all medications pt states he has no refills and needs his medications. documented in this encounter Plan of Treatment Upcoming Encounters Date Type Department Care Team (Late st Contact Info) Description 01/27/2025 3:00 PM EST Nurse Only [facility] MEDICINE [address] [place] [address] 03/16/2025 11:00 AM EDT Office Visit [facility] ADULT DENTAL [address] [place] [address] Master [employer]aris [address] [place] [address] documented as of this encounter Visit Diagnoses Not on filedocumented in this encounter Additional Health Concerns Assessment Noted Time PHQ-9 Depression Total Score: 2 07/19/20 24 1:41 PM EDT documented as of this encounter Care Teams Board Machine Set Up Operator Relationship Specialty Start Date End Date Emeli Gaitan ANP [address] [place] [address] PCP - General Family Medicine 02/18/23 documented as of this encounter
[2025-01-26 12:10] LABS: Anion Gap 11 (12-20); Blood Urea Nitrogen 18 mg/dL (9-16); Calcium 9.3 mg/dL (8.4-10.2); Carbon Dioxide 27 mmol/L (22-29); Chloride 102 mmol/L (96-108); Cholesterol 145 mg/dL (<200); Estimated Glomerular Filt Rate > 60; Glucose Random 85 mg/dL (60-115); HDL Cholesterol 51 mg/dL (>40); LDL Cholesterol Calculated 79 mg/dL (<100); Potassium 3.3 mmol/L (3.3-5.1); Sodium 137 mmol/L (135-145); Triglycerides 78 mg/dL (<150)
[2025-01-26 12:41] LABS: Creatinine Urine 124.84 mg/dL; Microalbumin Urine < 5.0 mg/L
== END 2025-01-26 08:11 | disposition home or self-care (01) ==
LOC: HO.HHCL 08:10
PROVIDERS: Visit Provider Nurse Practitioner Primary Care
DX: I10 Essential (primary) hypertension (principal); E78.00 Pure hypercholesterolemia, unspecified
CPT/HCPCS: 36415; 80048; 80061; 82043; 82570